=== PATIENT | female | born 1990 | race Caucasian/White ===

== ENCOUNTER 2017-05-17 12:48 | Inpatient (IN) ==
[2017-05-17] MEDS ORDERED: CHARCOAL Activated 25gm/120ml SUSP PO ONE (13:00)
--- NOTE | 2017-05-17 13:00 | Emergency Department Report ---
Overdose HPI - General Stated Complaint: possible od <Chely Urbinaawilda Griffiths - 05/17/17 13:00> Time Seen by Provider: 05/17/17 13:00 <Frannie Urbina - 05/17/17 13:00> Source: patient <Frannie Urbina Aye - 05/17/17 13:19> Mode of arrival: ambulatory <Chely Urbinaawilda Griffiths - 05/17/17 14:08> Limitations: no limitations <Frannie Urbina 05/17/17 14:08> - History of Present Illness HPI Narrative: 26-year-old female brought to ED via EMS for intentional overdose. Patient states that she took 80, 100 mg Seroquel and 25, 5mg prazosin at 12:15 today. Patient was released today from [facility] for abuse of "Hung". Patient states that she did want to kill herself. Patient has had other suicidal attempts and ideation in the past. Patient is very drowsy on arrival to ED and has to be awakened to answer questions. <Frannie Urbina - 05/17/17 14:36> MD complaint: intentional overdose <Chely Urbinaawilda Griffiths - 05/17/17 14:08> Onset (ago): minute(s) (45) <Chely Urbinaawilda Griffiths - 05/17/17 14:08> - Related Data Home Medications Medication Instructions Recorded Confirmed Canagliflozin/Metformin HCl 1 each PO DAILY 05/17/17 05/17/17 [Invokamet Xr 150-500 mg Tablet] Metoprolol Tartrate [Lopressor] 25 mg PO BIDWM 05/17/17 05/17/17 Mirtazapine [Remeron] 30 mg PO HS 05/17/17 05/17/17 Prazosin [Minipress] 5 mg PO HS 05/17/17 05/17/17 Quetiapine [Seroquel] 500 mg PO HS 05/17/17 05/17/17 Sucralfate [Carafate] 1 gm PO BID 05/17/17 05/17/17 Venlafaxine HCl [Venlafaxine HCl 150 mg PO DAILY 05/17/17 05/17/17 ER] <Frannie Urbina - 05/17/17 13:00> Allergies Allergy/AdvReac Type Severity Reaction Status Date / Time No Known Drug Allergies Allergy Unknown Verified 05/17/17 13:02 <Frannie Urbina 05/17/17 13:00> Review of Systems All systems: reviewed and negative except as stated <Frannie Urbina 14:08> Psychiatric: Reports: as per HPI, depression, suicidal thoughts <Frannie Urbina 05/17/17 14:08> Physical Exam - General General appearance: other (drowsy but awakens to questions) <Frannie Urbina 05/17/17 13:22> - Normal Exams: Head:: Normocephalic without trauma <Frannie Urbina 05/17/17 13:22> Eyes:: Pupils are PERRLA w/ EOMI, No scleral icterus, irritation <Frannie Urbina 05/17/17 13:22> ENMT:: No facial trauma, nasal exudates, pharyngeal erythema, or exudates are noted <Frannie Urbina 05/17/17 13:22> Neck:: Full range of motion, without adenopathy <Frannie Urbina 05/17/17 13:22> Chest/Respirations:: Clear all rock, with good airflow, and symmetry bilaterally <Frannie Urbina 05/17/17 13:22> Abdomen:: Bowel sounds positive, soft, non-tender <Frannie Urbina 13:22> - Neck Neck exam: Present: trachea midline <Frannie Urbina 05/17/17 13:22> - Cardiovascular Cardiovascular exam: Present: normal rhythm (154) <Frannie Urbina 13:22> - Skin Skin exam: Present: warm, dry, intact <Frannie Urbina 05/17/17 19:49> - Neurological Exam Neurological exam: Present: other (awakens to voice and is orient to person, place and time on arrival to ED) <Frannie Urbina 05/17/17 19:49> - Expanded Neurological Exam Motor strength - LUE: 5/5 <Frannie Urbina 05/17/17 19:49> Motor strength - RUE: 5/5 <Frannie Urbina 05/17/17 19:49> Course Vital Signs Temperature 98.1 F 05/17/17 12:51 Pulse Rate 163 H 05/17/17 12:51 Respiratory Rate 14 05/17/17 12:51 Blood Pressure 119/58 05/17/17 12:51 Pulse Oximetry 95 05/17/17 12:51 Temperature 98.1 F 05/17/17 12:51 Pulse Rate 94 05/17/17 18:48 Respiratory Rate 15 05/17/17 18:48 Blood Pressure 103/62 05/17/17 15:20 Pulse Oximetry 100 05/17/17 18:48 <Frannie Urbina - 05/17/17 13:19> Procedures - Intubation Time out performed: Yes <Santiago Tomas 05/17/17 15:08> sedative: Versed <Santiago Tomas 05/17/17 15:08> Mg Given: 18 <Santiago Tomas 05/17/17 15:08> paralytic: Succinylcholine <Santiago Tomas 05/17/17 15:08> Mg Given: 135 <Santiago Tomas 05/17/17 15:08> Laryngoscope: Urb[place] <Santiago Tomas 05/17/17 15:08> ET Tube Size: 7.5 <Santiago Tomas 05/17/17 15:08> ET Tube Uncuffed: No <Santiago Tomas 05/17/17 15:08> Tube Secured Depth (cm): 22 <Santiago Tomas 05/17/17 15:08> Tube Secured Location: teeth <Santiago Tomas 05/17/17 15:08> Tube Placement Confirmation: visualized tube passing through cords <Santiago Tomas 05/17/17 15:08> Patient Tolerated Procedure: no complications <Santiago Tomas 05/17/17 15:08 > Intubation Complications: none <Santiago Tomas 05/17/17 15:08> Additional Comments: Respiratory therapy perform the procedure, I supervised. Patient was premedicated with lidocaine. <Santiago Tomas 05/17/17 15:08> Overdose - MDM Narrative Medical decision making narrative: Patient becoming more drowsy, with shallow respirations at 10/m and tachycardic with heart rate in the 150s. I discussed patient's HPI, vital signs, exam findings with Dr. Tomas. I feel patient is going to need to be intubated to protect airway. Dr. Tomas assumed patient care at this time. <Frannie Urbina - 05/17/17 19:49> - Differential Diagnosis Likely: suicide attempt by multiple drug overdose, drug overdose, accidental drug ingestion <Frannie Urbina - 05/17/17 19:45> - Lab Data Attestation: I reviewed the patient's lab results. <Frannie Urbina - 19:45> Result diagrams: 05/17/17 13:16 05/17/17 13:16 <Frannie Urbina - 05/17/17 13:00> Lab Results 05/17/17 05/17/17 05/17/17 Range/Units 13:16 13:16 13:16 WBC 7.0 (4.5-11.0) T/MM3 RBC 4.92 (4.00-5.20) M/MM3 Hgb 14.0 (12-16) GM/DL Hct 41.9 (36-46) % MCV 85.2 (80-100) UM3 MCH 28.5 (26-34) UUG MCHC 33.4 (31-37) GM/DL RDW Std Deviation 47.0 (36.9-50.2) FL Plt Count 213 (130-400) T/MM3 MPV 10.3 (9.4-12.4) UM3 Immature Gran % (Auto) 0.4 (0.0-0.5) % Neut % (Auto) 51.8 (33-66) % Lymph % (Auto) 40.0 (23-45) % Tift % (Auto) 5.4 (0-9.0) % Eos % (Auto) 2.1 (0-4) % Baso % (Auto) 0.3 (0-2) % Neut # (Auto) 3.6 (1.8-7.7) T/MM3 Lymph # (Auto) 2.8 (1-4.8) T/MM3 Tift # (Auto) 0.4 (0-0.8) T/MM3 Eos # (Auto) 0.2 (0-0.5) T/MM3 Baso # (Auto) 0.0 (0-0.2) T/MM3 Abs Immat Gran (auto) 0.03 (0.00-0.03) T/MM3 Turbidity < 20 (0-20) Sodium 145 H (134-144) MEQ/L Potassium 4.0 (3.6-5) MEQ/L Chloride 111 H (98-107) MEQ/L Carbon Dioxide 18 L (22-30) MEQ/L Anion Gap 16 H (5-15) MEQ/L BUN 6.0 L (7-17) MG/DL Creatinine 0.7 (0.7-1.2) MG/DL GFR Calculation 101 BUN/Creatinine Ratio 9 (6-26) RATIO Glucose 157 H (65-110) MG/DL Calculated Osmolality 280 (261-280) MOSM/KG Calcium 9.4 (8.4-10.2) MG/DL Total Bilirubin 0.20 (0.20-1.30) MG/DL Icterus Index < 2 (0-7) AST 25 (14-36) U/L ALT 39 (9-52) U/L Alkaline Phosphatase 61 (38-126) U/L Total Protein 7.7 (6.3-8.2) G/DL Albumin 4.6 (3.5-5.0) G/DL Globulin 3.1 (2.4-3.6) G/DL Albumin/Globulin Ratio 1.5 (1.1-2.2) RATIO Serum , Qual Negative (Negative) Specimen Hemolysis 24 (0-25) Salicylates < 1.0 L (2-20) MG/DL Acetaminophen < 10 L (10-30) UG/ML Alcohol, Quantitative <10 (<10) MG/DL <Frannie Urbina 05/17/17 13:19> - EKG Data EKG #1 EKG attestation: Yes: I reviewed and interpreted this EKG. <Frannie Urbina 05/17/17 19:49> EKG results narrative: Sinus tachycardia <Frannie Urbina 05/17/17 19:49> Disposition Clinical Impression: Suicide attempt by multiple drug overdose Qualifiers: Encounter type: initial encounter Qualified Code(s): T50.902A - Poisoning by unspecified drugs, medicaments and biological substances, intentional self-harm , initial encounter <Frannie Urbina 05/17/17 19:49> Disposition: 02 To [facility] [place], [place] Acute Care <Frannie Urbina 05/17/17 19:45> Condition: Improved <Frannie Urbina - 05/17/17 19:45> Instructions: <Frannie Urbina - 05/17/17 13:00> Prescriptions: No Action Venlafaxine HCl [Venlafaxine HCl ER] 150 mg PO DAILY Sucralfate [Carafate] 1 gm PO BID Canagliflozin/Metformin HCl [Invokamet Xr 150-500 mg Tablet] 1 each PO DAILY Quetiapine [Seroquel] 500 mg PO HS Prazosin [Minipress] 5 mg PO HS Metoprolol Tartrate [Lopressor] 25 mg PO BIDWM Mirtazapine [Remeron] 30 mg PO HS <Frannie Urbina - 05/17/17 13:00> Referrals: Matt Al PA [Family Provider] - <Frannie Urbina - 13:00> Forms: <Frannei Urbina - 05/17/17 13:00> - Seen By: midlevel and physician <Frannie Urbina - 05/17/17 13:20>
[2017-05-17] MEDS ORDERED: NS 1,000 ML IV ONE ×2 (13:07→14:19)
[2017-05-17] MEDS: SALINE FLUSH 10ml SYRINGE IVF PRN ×2 (13:08→23:12)
[2017-05-17] MEDS ORDERED: ONDANSETRON 4 MG/2 ML INJECTION IVP ONE (13:14)
--- OUTSIDE RECORDS SUMMARY | 2017-05-17 13:45 | External Medical Summary | Clinical Summary ---
:1990 Author Organization [facility] Address [address] [address] Phone Support Name Relationship Address Phone Shweta Alejo Unavailable [address] [place] [address] Care Team Providers Name Role Phone Unavailable Primary Care Provider Unavailable Allergies No Known Allergies Current Medications Prescription Sig. Disp. Refills Start Date End Date Status mirtazapine (REMERON) Take 30 mg by Active 30 MG tablet mouth at bedtime. Reported on 04/12/2016 busPIRone (BUSPAR) 10 Take 10 mg by Active MG tablet mouth 3 (three) times daily. Reported on 04/12/2016 risperiDONE Take 1 mg by mouth Active (RISPERDAL) 1 MG 2 (two) times tablet daily. Reported on 04/12/2016 cloNIDine (CATAPRES) Take 0.2 mg by Active 0.2 MG mouth at bedtime. tabletIndications: Reported on Hypertension 04/12/2016 Indications: High Blood Pressure diphenhydrAMINE-zinc Apply to affected 28 g 0 01/19/2015 Active acetate (BANOPHEN) areas twice daily cream pantoprazole Take 20 mg by Active (PROTONIX) 20 MG mouth daily. tablet metFORMIN Take 1 tablet (500 60 tablet 0 04/16/2016 Active (GLUCOPHAGE) 500 MG mg total) by mouth tablet 2 (two) times daily with meals. lithium (ESKALITH) Take 1 capsule 90 capsule 0 04/16/2016 Active 300 MG (300 mg total) by capsuleIndications: mouth 3 (three) Bipolar Mood times daily with Disorder, Bipolar meals. disorder Indications: Manic-Depression, Bipolar disorder QUEtiapine (SEROQUEL) Take 1 tablet (400 30 tablet 0 04/16/2016 Active 400 MG mg total) by mouth tabletIndications: at bedtime. Depressive Phase Indications: Bipolar Mood Disorder Depressive Phase of Manic-Depression sertraline (ZOLOFT) Take 1 tablet (50 30 tablet 0 04/16/2016 Active 50 MG tablet mg total) by mouth daily. busPIRone (BUSPAR) 15 Take 1 tablet (15 60 tablet 0 04/16/2016 Active MG tabletIndications: mg total) by mouth Depression, adjunct 2 (two) times daily. Indications: Depression, adjunct traZODone (DESYREL) Take 1 tablet (100 30 tablet 0 04/16/2016 Active 100 MG tablet mg total) by mouth at bedtime as needed for Sleep. Active Problems Problem Noted Date Type 2 diabetes mellitus without complication, without long-term current 04/12 use of insulin Bipolar I disorder, current episode depressed ([facility]) 04/12/2016 Suicide attempt 04/12/2016 PTSD (post-traumatic stress disorder) 01/19/2015 Bipolar 1 disorder, depressed, severe ([facility]) 01/17/2015 Overweight 01/14/2015 BMI 40.0-44.9, adult ([facility]) 01/13/2015 Respiratory failure ([facility]) 01/12/2015 Intentional drug overdose ([facility]) 01/12/2015 Sinus tachycardia 01/12/2015 Resolved Problems Problem Noted Date Resolved Date Mood disorder ([facility]) 04/12/2016 04/16/2016 Suicidal ideations 01/15/2015 01/19/2015 Mood disorder ([facility]) 01/14/2015 01/19/2015 Social History Tobacco Use Types Packs/Day Years Used Date Current Every Day Smoker 1.5 Alcohol Use Drinks/Week oz/Week Comments No 0 Standard drinks or equivalent 0.0 Sex Assigned at Date Recorded Not on file Last Filed Vital Signs Vital Sign Reading Time Taken Blood Pressure 114/73 04/16/2016 5:56 PM [employer] Pulse 94 04/16/2016 5:56 PM [employer] Temperature 36.4 C (97.6 F) 04/16/2016 5:56 PM [employer] Respiratory Rate 18 04/16/2016 5:56 PM [employer] Oxygen Saturation 99% 04/16/2016 5:56 PM [employer] Inhaled Oxygen Concentration - - Weight 100.7 kg (222 lb) 04/16/2016 6:22 AM [employer] Height 167.6 cm (5' 6") 04/12/2016 4:36 AM [employer] Body Mass Index 35.83 04/16/2016 6:22 AM [employer] Plan of Treatment Health Maintenance Due Date Last Done Comments Diabetic Foot Exam 2000 Ophthalmology Exam 2000 HPV Vaccines (1 of 3 - Female 3 Dose Series) 2001 Varicella Vaccines (1 of 2 - 2 Dose Adolescent Series) 11/08/2003 DTaP,Tdap,and Td Vaccines (1 - Tdap) 2009 CERVICAL CANCER SCREENING 11/08/2011 Influenza Vaccine (#1) 2016 Results Not on filefrom Last 3 Months
--- NOTE | 2017-05-17 15:14 | XRay Report ---
Indication: ET tube placement PROCEDURE: XR chest 1V: Encounter: Initial Comparison: None Findings: The lungs are hypoinflated. Endotracheal tube is in place with the tip 2.1 cm above the nick. Hazy basilar airspace opacities. No gross pleural effusion or pneumothorax identified. Cardiomediastinal contours are normal allowing for the hypoinflated state. Impression: 1. Endotracheal tube tip projects in appropriate position. 2. Hypoinflation with hazy basilar opacities could be due to atelectasis, pneumonia or aspiration. .
[2017-05-17] MEDS: 1/2 NS 1,000 ML IV SCH ×2 (15:29→23:58)
--- NOTE | 2017-05-17 16:08 | History & Physical Report ---
History of Present Illness Date: 05/17/17 Chief complaint: intentional drug overdose, suicidial attempt HPI: Lynn Evans is a 26-year-old female patient of Dr. Matt Al who was brought to [facility] via EMS today, 05/17/17, for evaluation of intentional drug overdose. It was reported that she was released from [facility] this morning after completing treatment for drug abuse. She has a known past history of methamphetamine abuse but it is unknown what drug(s) use she was recently treated for. She also has a history of depression with previous suicidal gestures and attempts including intentional drug overdoses and cutting of her wrists and ankles. EMS reports that upon initial evaluation, she admitted to intentionally ingesting 80 tabs of Seroquel 100mg (totally 8000mg) and 25 tabs of Prazosin 5mg (125mg) today around 12:15pm with the intent to harm herself. She also admitted to immediately notifying someone of her overdose, but was unable to recall who she notified by the time EMS arrived. She was transferred to [facility] ED for further evaluation. Initially she complained of some nausea with drowsiness which progressively became more profound during her acute evaluation in the ED. Her breathing became significantly more shallow at <10 breaths per minute requiring intubation to ensure protection of her airway. Prior to her intubation, she was given charcoal, Ativan, Zofran and 2 liters of NS IVF. Labs were obtained and revealed mild hypernatremia with sodium of 145 and hyperglycemia with glucose at 157. CXR following her intubation revealed the ET tube tip was in the appropriate position as well as hypoinflated lungs with hazy basilar opacities which could be atelectasis, pneumonia or aspiration. History was limited to prior medical records, ED notes and EMS report given her extreme somnolence on initial presentation and rapid decline requiring intubation. Due to her intentional drug over dose, suicidal attempt and respiratory failure requiring intubation, Dr. Ozuna was consulted and she was accepted into inpatient status in ICU for close cardiac and respiratory monitoring, IV hydration and treatment. Her length of stay is expected to exceed more than 2 over nights. Review of Systems ROS unobtainable: due to endotracheal tube - Constitutional Comments: drowsiness - EENMT Eyes: Absent: photophobia Nose: Absent: nosebleeds - Cardiovascular Cardiovascular: Absent: syncope, edema Vascular: Absent: pedal edema - Gastrointestinal Gastrointestinal: Present: nausea. Absent: vomiting - Musculoskeletal Musculoskeletal: Absent: deformity - Integumentary/Breasts Integumentary: Absent: rash - Neurological Neurological: Present: confusion - Psychiatric Psychiatric: Present: anxiety, depression, difficulty concentrating, suicidal ideation Past Medical History Patient Stated Medical History Bipolar disorder. Depression. PTSD. Personality disorder. Substance abuse. History of suicidal attempt and gestures. Surgical History: Unable to obtain. Family History Updates: Unable to obtain. - Social History Smoking status: Unknown if ever smoked Social history: History of prior methamphetamine abuse. Discharged from [facility] 05/17/17 after completing treatment for substance abuse of unverified substance. Patient previously lived in a prison. Residence at this time is unknown. Alcohol use is unknown. PCP - Dr. Matt Al. Medications Home Medications Medication Instructions Recorded Confirmed Type Canagliflozin/Metformin HCl 1 each PO DAILY 05/17/17 05/17/17 History [Invokamet Xr 150-500 mg Tablet] Metoprolol Tartrate [Lopressor] 25 mg PO BIDWM 05/17/17 05/17/17 History Mirtazapine [Remeron] 30 mg PO HS 05/17/17 05/17/17 History Prazosin [Minipress] 5 mg PO HS 05/17/17 05/17/17 History Quetiapine [Seroquel] 500 mg PO HS 05/17/17 05/17/17 History Sucralfate [Carafate] 1 gm PO BID 05/17/17 05/17/17 History Venlafaxine HCl [Venlafaxine HCl 150 mg PO DAILY 05/17/17 05/17/17 History ER] Allergies Allergy/AdvReac Type Severity Reaction Status Date / Time No Known Drug Allergies Allergy Unknown Verified 05/17/17 13:02 Exam Vital Signs: Temperature 98.1 F 05/17/17 12:51 Pulse Rate 92 05/17/17 15:20 Respiratory Rate 17 05/17/17 15:20 Blood Pressure 103/62 05/17/17 15:20 Pulse Oximetry 98 05/17/17 15:30 Telemetry Rhythm: Sinus Tachycardia Comments: Patient is initially seen in ED, trauma room B and then seen immediately upon arrival to ICU #2. Limited history and exam given patient is currently intubated and sedated. - Constitutional Present: no acute distress, well nourished, well developed, obese, other ( intubated) - Routine HEENT Exam Head: Present: normocephalic, atraumatic Eye: Present: PERRL. Absent: conjunctival icterus Comments: unable to assess oral cavity due to intubation placement. - Routine Neck Exam Present: supple, trachea midline. Absent: JVD - Routine Chest/Breast/Axilla Exam Chest wall: Absent: pacemaker - Routine Respiratory Exam Present: patient mechanically ventilated Comments: course breath sounds bilaterally. - Routine Cardiovascular Exam Present: S1, S2, tachycardia - Routine Abdominal Exam Present: soft, non distended Comments: hypoactive bowel sounds; obese; healed surgical scars noted to umbilicus and LLQ. - Routine Exam Comments: Barrientos catheter placed. - Routine Extremities Exam Present: no edema, pulses intact - Routine Back/Spine/Pelvis Exam Comments: unable to assess due to patient being sedated and intubated. - Routine Skin Exam Present: dry, warm. Absent: jaundice Comments: afebrile; multiple healed linear scars noted to left wrist and ankles consistent with history of cutting. - Routine Neurological Exam unable to assess given patient recent clinical sedation for intubation. - Routine Psychiatric Exam Present: suicidal ideation, depressed Results - Labs CBC & Chem 7: 05/17/17 13:16 05/17/17 13:16 - Imaging and Cardiology Chest x-ray Status: image reviewed by me Additional comments: Date of Exam: 05/17/17 Type of Exam(s): XR chest 1V Reason for Exam(s): chest tube placement Findings: The lungs are hypoinflated. Endotracheal tube is in place with the tip 2.1 cm above the nick. Hazy basilar airspace opacities. No gross pleural effusion or pneumothorax identified. Cardiomediastinal contours are normal allowing for the hypoinflated state. Impression: 1. Endotracheal tube tip projects in appropriate position. 2. Hypoinflation with hazy basilar opacities could be due to atelectasis, pneumonia or aspiration. Assessment and Plan (1) Suicide attempt by multiple drug overdose Current visit: Yes Status: Acute Assessment and Plan: Assessment: Suicidal attempt with multiple drug overdose, acute. Acute respiratory failure requiring intubation. Hypernatremia, acute, present on admission. Hyperglycemia, acute, present on admission. Bipolar disorder, chronic. Depression, chronic. PTSD, chronic. Personality disorder, chronic. Substance abuse, chronic. History of suicidal attempt and gestures. Plan - 05/17/17 (Admission). Admit to inpatient status under the care of Dr. Ozuna for suicidal attempt with intentional drug overdose with multiple drugs. Patient reportedly took 80 tabs of Seroquel 100mg and 25 tabs of Prazosin 5mg prior to arrival. She was given charcoal, Ativan, Zofran and 2 liters of NS in ED prior to requiring intubation due to respiratory failure. Concern for QT prolongation in addition to sedative effects with overdose. Monitor closely on telemetry. Poison control recommended repeat EKGs x 2 hours per ED. Continue respiratory cares with intubation to protect her airway. Will continue 1/2 NS at 125cc/hr for hydration given her hypernatremia on arrival. Will recheck BMP in AM to monitor electrolytes and renal function. Continue Ativan 1mg IV Q4H PRN agitation and monitor neurologic function closely. Zofran PRN nausea/vomiting. GI protection with Protonix 40mg IV daily. SCDs for DVT prophylaxis. Home medications were unable to be verified. A message was left for Ariela at [facility] in an attempt to verify current medications. Prior medication list reveals medication for DM. Will monitor BGMs closely and treat accordingly. Suicide precautions as well as seizure precautions to maintain patient safety. Barrientos catheter placed as patient had been incontinent and to monitor I&O closely. Will check CBC, CMP, mag and TSH in AM to monitor blood counts, electrolytes and renal function. Upon discharge, patient's care will be returned to her PCP, Dr. Al. Laith Assessment as above with: Polysubstance overdose, Metabolic encephalopathy secondary to polysubstance overdose. DVT Prophylaxis: SCD's GI Prophylaxis: Protonix Resuscitation Status: Full Code - Time spent with patient Time with patient PN: 50 minutes - Physician Narrative Physician: Luther Ozuna MD Narrative: Date: 05/17/17 Time: 1824 Have independently interviewed and examined pt. Chart reviewed. Case discussed with ED physician and my PA. Care plan developed with my supervision; agree with above. Presents to ED with intentional drug overdose. Reports it was a suicide attempt. Did call someone-EMS was activated and brought patient to ED. During evaluation in ED, mental and respiratory status started to decline. Based on amount of medication patient ingested, descision to intubate for airway protection made. Currently, patient resting comfortably on vent. Unresponsive. Paralytics should be worn off by know. Lungs: clear bilaterally with upper airway noises. CV: regular AB: soft nt BS decreased EXT: no edema Plan: Inpatient admission secondary to acute overdose of medications with respiratory sedation. Most likely will need more than 2 midnights of care needed. Continue intubation and mechanical ventilation for airway control. Will have sedatives available to help patient tolerate vent. Extubate once patient able to demonstrate ability to maintain respiratory status on her own. IVF for hydration. NG for bowel decompression. SCD for DVT prevention. Monitor lab. Will need psychiatric evaluation once she is awake and alert. Hospital Course Summary Disclaimer: The visit summary below is not to be considered part of the above Progress Note. Hospital Course: Plan - 05/17/17 (Admission). Admit to inpatient status under the care of Dr. Ozuna for suicidal attempt with intentional drug overdose with multiple drugs. Patient reportedly took 80 tabs of Seroquel 100mg and 25 tabs of Prazosin 5mg prior to arrival. She was given charcoal, Ativan, Zofran and 2 liters of NS in ED prior to requiring intubation due to respiratory failure. Concern for QT prolongation in addition to sedative effects with overdose. Monitor closely on telemetry. Poison control recommended repeat EKGs x 2 hours per ED. Continue respiratory cares with intubation to protect her airway. Will continue 1/2 NS at 125cc/hr for hydration given her hypernatremia on arrival. Will recheck BMP in AM to monitor electrolytes and renal function. Continue Ativan 1mg IV Q4H PRN agitation and monitor neurologic function closely. Zofran PRN nausea/vomiting. GI protection with Protonix 40mg IV daily. SCDs for DVT prophylaxis. Home medications were unable to be verified. A message was left for Ariela at [facility] in an attempt to verify current medications. Prior medication list reveals medication for DM. Will monitor BGMs closely and treat accordingly. Suicide precautions as well as seizure precautions to maintain patient safety. Barrientos catheter placed as patient had been incontinent and to monitor I&O closely. Will check CBC, CMP, mag and TSH in AM to monitor blood counts, electrolytes and renal function. Upon discharge, patient's care will be returned to her PCP, Dr. Al.
[2017-05-17] MEDS ORDERED: ONDANSETRON 4 MG/2 ML INJECTION IVP PRN (16:10)
[2017-05-17] MEDS ORDERED: LIDOCAINE 2% (100mg/5ml) SYRINGE (PF) IVP ONE (16:23)
[2017-05-17] MEDS ORDERED: SUCCINYLCHOLINE 20mg/mL 10mL INJECTION ONE (16:23)
[2017-05-17] MEDS ORDERED: MIDAZOLAM 5mg/5ml INJECTION ONE (16:23)
[2017-05-17] MEDS: PROPOFOL 1,000 MG/100 ML VIAL IV PRN (20:20)
[2017-05-17] MEDS: PANTOPRAZOLE 40 MG INJECTION IVP SCH (23:12)
[2017-05-18] MEDS: PROPOFOL 1,000 MG/100 ML VIAL IV PRN ×3 (02:03→10:30)
[2017-05-18 02:10] VITALS: BMI 37.5
[2017-05-18] MEDS: 1/2 NS 1,000 ML IV SCH ×2 (08:08→17:26)
[2017-05-18] MEDS: PANTOPRAZOLE 40 MG INJECTION IVP SCH (08:10)
[2017-05-18] MEDS: SALINE FLUSH 10ml SYRINGE IVF PRN ×3 (08:10→12:40)
--- NOTE | 2017-05-18 11:44 | Progress Note ---
- Date 05/18/17 Subjective: F/U: Polysubstance overdose, Toxic encephalopathy, Respiratory suppression Resting on vent. Will open eyes to verbal stimuli. Moves ext spontaneously. Gets very restless/agitated - on Max dose Propofol and needing intermittent lorazepam to help decrease agitation. Vital stable. Objective Vital signs: Temperature 96.8 F 05/17/17 15:21 Pulse Rate 91 05/18/17 10:57 Respiratory Rate 14 05/18/17 10:57 Blood Pressure 110/72 05/18/17 07:15 Pulse Oximetry 97 05/18/17 10:57 Height/Weight/BMI: Height 1.68 m Weight 108.2 kg Body Mass Index 37.5 - Constitutional Present: well nourished, well developed, obese, somnolent - Routine HEENT Exam Head: Present: normocephalic, atraumatic ENT: Present: mucous membranes moist - Routine Respiratory Exam Present: CTA bilaterally. Absent: respiratory distress, wheezes, crackles - Routine Cardiovascular Exam Present: RRR, no murmur - Routine Abdominal Exam Present: soft, non distended, non tender. Absent: normoactive bowel sounds, guarding - Routine Extremities Exam Present: cyanosis, clubbing, edema (Trace BLE ), pulses intact, normal capillary refill - Routine Musculoskeletal Exam Musculoskeletal: Present: no clubbing or cyanosis - Routine Skin Exam Present: dry, warm - Routine Neurological Exam Present: moving all extremities - Routine Psychiatric Exam Absent: agitated Results - Labs CBC & Chem 7: 05/18/17 04:38 05/18/17 04:38 Assessment and Plan (1) Polysubstance overdose Current visit: Yes Status: Acute (2) Encephalopathy, toxic Current visit: Yes Status: Acute (3) Suicide attempt by multiple drug overdose Current visit: Yes Status: Acute Assessment and Plan: Assessment: Polysubstance drug overdose, intentional Toxic metabolic encephalopathy secondary to drug overdose Acute respiratory failure requiring intubation for airway protection Suicidal attempt with multiple drug overdose, acute. Hypernatremia, acute (POA) Hyperglycemia, acute (POA) Bipolar disorder, chronic Depression, chronic PTSD, chronic Personality disorder, chronic Substance abuse, chronic History of suicidal attempt and gestures Plan Respiratory status doing well, needing minimal ventilatory support. Will extubate. Need to monitor respiratory status off vent. Decrease IVF to 1/2NS at 100 cc/hr. Remove NG as patient extubated - advance diet when patient awake and alert. Will continue lorazepam to help restlessness and agitation. Psych consult when she is awake and alert. Continue CCU monitoring. Case discussed with CCU nursing and RT. Time spent with patient care 35 minutes. DVT Prophylaxis: SCD's Resuscitation Status: Full Code - Time spent with patient Time with patient PN: 35 minutes - Physician Narrative Physician: Luther Ozuna MD Narrative: Date: 05/18/17 Time: 1140 Hospital Course Summary Disclaimer: The visit summary below is not to be considered part of the above Progress Note. Hospital Course: 05/17/17 - Admission Admit to inpatient status under the care of Dr. Ozuna for suicidal attempt with intentional drug overdose with multiple drugs. Patient reportedly took 80 tabs of Seroquel 100mg and 25 tabs of Prazosin 5mg prior to arrival. She was given charcoal, Ativan, Zofran and 2 liters of NS in ED prior to requiring intubation due to respiratory failure. Concern for QT prolongation in addition to sedative effects with overdose. Monitor closely on telemetry. Poison control recommended repeat EKGs x 2 hours per ED. Continue respiratory cares with intubation to protect her airway. Will continue 1/2 NS at 125cc/hr for hydration given her hypernatremia on arrival. Will recheck BMP in AM to monitor electrolytes and renal function. Continue Ativan 1mg IV Q4H PRN agitation and monitor neurologic function closely. Zofran PRN nausea/vomiting. GI protection with Protonix 40mg IV daily. SCDs for DVT prophylaxis. Home medications were unable to be verified. A message was left for Ariela at [email or web address] in an attempt to verify current medications. Prior medication list reveals medication for DM. Will monitor BGMs closely and treat accordingly. Suicide precautions as well as seizure precautions to maintain patient safety. Barrientos catheter placed as patient had been incontinent and to monitor I&O closely. Will check CBC, CMP, mag and TSH in AM to monitor blood counts, electrolytes and renal function. Upon discharge, patient's care will be returned to her PCP, Dr. Al. 05/18/17 Respiratory status doing well, needing minimal ventilatory support. Will extubate. Need to monitor respiratory status off vent. Decrease IVF to 1/2NS at 100 cc/hr. Remove NG as patient extubated - advance diet when patient awake and alert. Will continue lorazepam to help restlessness and agitation. Psych consult when she is awake and alert. Continue CCU monitoring.
--- NOTE | 2017-05-18 14:00 | Pulmonology Consult Note ---
History of Present Illness Consult date: 05/18/17 Requesting physician: Luther Ozuna Reason for consult: other (vent management) History of present illness: Patient is extubated and doing well. Will likely stay in ICU until psych disposition is determined. I will see as needed. PFSH Patient Stated Medical History Diabetes Mellitus Type 2 Yes Bipolar Disorder Yes Depression Yes Post Traumatic Stress Disorder Yes Substance Use Disorder Yes Other Behavioral Health Yes: personality disorder Surgical History: Unable to obtain. - Social History Smoking status: Unknown if ever smoked Medications Home Medications Medication Instructions Recorded Confirmed Type Canagliflozin/Metformin HCl 1 each PO DAILY 05/17/17 05/17/17 History [Invokamet Xr 150-500 mg Tablet] Metoprolol Tartrate [Lopressor] 25 mg PO BIDWM 05/17/17 05/17/17 History Mirtazapine [Remeron] 30 mg PO HS 05/17/17 05/17/17 History Prazosin [Minipress] 5 mg PO HS 05/17/17 05/17/17 History Quetiapine [Seroquel] 500 mg PO HS 05/17/17 05/17/17 History Sucralfate [Carafate] 1 gm PO BID 05/17/17 05/17/17 History Venlafaxine HCl [Venlafaxine HCl 150 mg PO DAILY 05/17/17 05/17/17 History ER] Allergies Allergy/AdvReac Type Severity Reaction Status Date / Time No Known Drug Allergies Allergy Unknown Verified 05/17/17 13:02 Exam Vital signs: Temperature 98.2 F 05/18/17 12:15 Pulse Rate 102 H 05/18/17 13:00 Respiratory Rate 21 05/18/17 13:00 Blood Pressure 125/81 05/18/17 13:00 Pulse Oximetry 98 05/18/17 13:00 Results - Laboratory Findings CBC and BMP: 05/18/17 04:38 05/18/17 04:38 Abnormal lab findings: Abnormal Labs 05/17/17 05/18/17 05/18/17 17:25 04:38 04:38 WBC 11.2 H D Abs Immat Gran (auto) 0.04 H Sodium 146 H Chloride 114 H Carbon Dioxide 20 L Total Bilirubin < 0.10 L TSH 7.22 H Urine Glucose (UA) 3+ A Assessment and Plan - Time Spent With Patient Total time spent is greater than 50% in coordination of care (as documented) at patient's floor/unit and/or counseling patient: less than 15 minutes
[2017-05-18] MEDS: NICOTINE 21 MG PATCH TD SCH (15:35)
[2017-05-18 18:06] VITALS: TEMP 98.6
[2017-05-18] MEDS: MIRTAZAPINE 30 MG TABLET PO SCH (22:18)
[2017-05-18] MEDS: PRAZOSIN 5 MG CAPSULE PO SCH (22:19)
[2017-05-19] MEDS: 1/2 NS 1,000 ML IV SCH ×2 (03:16→09:17)
[2017-05-19] MEDS ORDERED: METFORMIN 500 MG TABLET PO SCH (07:30)
[2017-05-19] MEDS ORDERED: CANAGLIFLOZIN 100mg TABLET PO SCH (07:30)
[2017-05-19] MEDS ORDERED: [UNRECOGNIZED DRUG - OTHER] PO SCH (09:00)
[2017-05-19] MEDS ORDERED: CANAGLIFLOZIN PO SCH (09:00)
[2017-05-19] MEDS ORDERED: METFORMIN HCL PO SCH (09:00)
[2017-05-19] MEDS ORDERED: SUCRALFATE 1 GM TABLET PO SCH (09:00)
[2017-05-19] MEDS: NICOTINE 21 MG PATCH TD SCH (09:15)
[2017-05-19] MEDS: PANTOPRAZOLE 40 MG INJECTION IVP SCH (09:17)
[2017-05-19] MEDS: NICOTINE PATCH REMOVAL TD SCH (09:44)
--- NOTE | 2017-05-19 10:10 | XRay Report ---
Indication: ET tube follow up PROCEDURE: XR chest 1V: Encounter: Initial Comparison: May 17, 2017 Findings: New nasogastric tube in place with the proximal side port projecting over the body of the stomach. Endotracheal tube is in place with the tip projecting 4.3 cm above the nick near the thoracic inlet. Lungs show hazy alveolar type opacity in the right medial base. No pneumothorax or definite effusion. Heart size and mediastinal contours are stable. Impression: Tubes and lines as above. Hazy right basilar infiltrate. .
[2017-05-19] MEDS: SUCRALFATE 1 GM TABLET PO SCH (10:25)
[2017-05-19] MEDS ORDERED: LORazepam 1 MG TABLET PO PRN ×2 (12:41→19:46)
--- NOTE | 2017-05-19 14:02 | Progress Note ---
- Date 05/19/17 Subjective: F/U: Polysubstance overdose, Toxic encephalopathy, Respiratory suppression Sitting up in bed. Nursing reports significant behavior problems today: very agitated, broke a senior research consultant she had and cutting arm with senior research consultant and swallowed a piece of senior research consultant. Hard to redirect-did need to contact [place] [employer]. Currently in restrains secondary to her behavioral problems. Poor eye contact. Not very forthcoming with questioning. Breathing okay, notes slight SOA with activities. Not having increased cough/congestion. No pain with breathing. No chest pressure , pain, or heaviness. Does report fast heart rate in the past. Appetite decreased-not wanting the food here. Objective Vital signs: Temperature 98.6 F 05/18/17 18:00 Pulse Rate 116 H 05/19/17 11:55 Respiratory Rate 18 05/19/17 09:45 Blood Pressure 118/84 05/19/17 09:00 Pulse Oximetry 97 05/19/17 09:45 Height/Weight/BMI: Height 1.68 m Weight 106 kg Body Mass Index 37.5 - Constitutional Present: well nourished, well developed, obese. Absent: cooperative, somnolent , obtunded - Routine HEENT Exam Head: Present: normocephalic, atraumatic Eye: Present: EOMI, PERRL ENT: Present: mucous membranes moist - Routine Respiratory Exam Present: CTA bilaterally. Absent: rales, respiratory distress, rhonchi, stridor , wheezes, crackles - Routine Cardiovascular Exam Present: no murmur, tachycardia - Routine Abdominal Exam Present: soft, normoactive bowel sounds, non distended, non tender. Absent: guarding - Routine Extremities Exam Present: no edema, pulses intact. Absent: cyanosis, clubbing - Routine Musculoskeletal Exam Musculoskeletal: Present: no clubbing or cyanosis, normal strength - Routine Neurological Exam Present: alert, CN II-XII intact, moving all extremities, vision grossly intact , hearing grossly intact, normal speech. Absent: motor deficit, altered mental status - Routine Psychiatric Exam Absent: anxious, agitated Comments: Poor eye contact. Answers questions with short phrases. Results - Labs CBC & Chem 7: 05/19/17 04:39 05/19/17 04:39 Assessment and Plan (1) Polysubstance overdose Current visit: Yes Status: Acute (2) Encephalopathy, toxic Current visit: Yes Status: Acute (3) Suicide attempt by multiple drug overdose Current visit: Yes Status: Acute Assessment and Plan: Assessment Polysubstance drug overdose, intentional Toxic metabolic encephalopathy secondary to drug overdose - resolved Acute respiratory failure requiring intubation for airway protection - resolved Suicidal attempt with multiple drug overdose, acute. Hypernatremia, acute (POA) Hyperglycemia, acute (POA) Hypokalemia (Not POA) Type II DM Bipolar disorder, chronic Depression, chronic PTSD, chronic Personality disorder, chronic Substance abuse, chronic History of suicidal attempt and gestures Obesity with BMI 37.7 Plan Respiratory status doing well on RA. Maintaining saturation IV site lost as patient pulled out IV and tele. Significant behavioral problems expressed. Refusing oral medications. Refused oral potassium. Will have lorazepam 1mg IM q2 hr prn, possible need to increase dose base on response. Restrains initiated for patient as staff safety. Will try to obtain abdominal xray secondary to patient's ingestion of foreign object. PV did state screen on patient - recommend involuntary admission to [facility]. Arrangements being made. Needs to continue CCU monitoring for 1 on 1 supervision for patient safety. Case discussed with CCU nursing and pharm. Time spent with patient care 25 minutes. Case discussed with provider at [facility]. Will accept patient tomorrow. Resuscitation Status: Full Code - Time spent with patient Time with patient PN: 25 minutes - Physician Narrative Physician: Luther Ozuna MD Narrative: Date: 05/19/17 Time: 8191 Hospital Course Summary Disclaimer: The visit summary below is not to be considered part of the above Progress Note. Hospital Course: 05/17/17 - Admission Admit to inpatient status under the care of Dr. Ozuna for suicidal attempt with intentional drug overdose with multiple drugs. Patient reportedly took 80 tabs of Seroquel 100mg and 25 tabs of Prazosin 5mg prior to arrival. She was given charcoal, Ativan, Zofran and 2 liters of NS in ED prior to requiring intubation due to respiratory failure. Concern for QT prolongation in addition to sedative effects with overdose. Monitor closely on telemetry. Poison control recommended repeat EKGs x 2 hours per ED. Continue respiratory cares with intubation to protect her airway. Will continue 1/2 NS at 125cc/hr for hydration given her hypernatremia on arrival. Will recheck BMP in AM to monitor electrolytes and renal function. Continue Ativan 1mg IV Q4H PRN agitation and monitor neurologic function closely. Zofran PRN nausea/vomiting. GI protection with Protonix 40mg IV daily. SCDs for DVT prophylaxis. Home medications were unable to be verified. A message was left for Ariela at [facility] in an attempt to verify current medications. Prior medication list reveals medication for DM. Will monitor BGMs closely and treat accordingly. Suicide precautions as well as seizure precautions to maintain patient safety. Barrientos catheter placed as patient had been incontinent and to monitor I&O closely. Will check CBC, CMP, mag and TSH in AM to monitor blood counts, electrolytes and renal function. Upon discharge, patient's care will be returned to her PCP, Dr. Al. 05/18/17 Respiratory status doing well, needing minimal ventilatory support. Will extubate. Need to monitor respiratory status off vent. Decrease IVF to 1/2NS at 100 cc/hr. Remove NG as patient extubated - advance diet when patient awake and alert. Will continue lorazepam to help restlessness and agitation. Psych consult when she is awake and alert. Continue CCU monitoring for close one-on-one supervision secondary to suicide attempt. 05/19/17 Respiratory status doing well on RA. Maintaining saturation IV site lost as patient pulled out IV and tele. Significant behavioral problems expressed. Refusing oral medications. Refused oral potassium. Will have lorazepam 1mg IM q2 hr prn, possible need to increase dose base on response. Restrains initiated for patient as staff safety. Will try to obtain abdominal xray secondary to patient's ingestion of foreign object. PV did state screen on patient - recommend involuntary admission to [facility]. Arrangements being made. Needs to continue CCU monitoring for 1 on 1 supervision for patient safety.
[2017-05-19] MEDS ORDERED: ACETAMINOPHEN 500 MG TABLET PO PRN (15:42)
[2017-05-19] MEDS ORDERED: ONDANSETRON 4 MG TABLET PO PRN (17:11)
[2017-05-19] MEDS ORDERED: MAG-AL + SIM ORAL LIQUID 30ml PO PRN (17:12)
[2017-05-19] MEDS: PRAZOSIN 5 MG CAPSULE PO SCH (19:36)
[2017-05-19] MEDS: MIRTAZAPINE 30 MG TABLET PO SCH (19:38)
[2017-05-19] MEDS: QUETIAPINE 100 MG TABLET PO SCH (19:38)
[2017-05-19 23:50] VITALS: RESP 43
[2017-05-20] MEDS: QUETIAPINE 100 MG TABLET PO SCH (01:06)
[2017-05-20] MEDS: MIRTAZAPINE 30 MG TABLET PO SCH (01:06)
[2017-05-20] MEDS: SUCRALFATE 1 GM TABLET PO SCH (01:06)
[2017-05-20] MEDS: PRAZOSIN 5 MG CAPSULE PO SCH (01:06)
--- NOTE | 2017-05-20 09:14 | Progress Note ---
- Date 05/20/17 Subjective: F/U: Polysubstance overdose, Toxic encephalopathy, Respiratory suppression Sleepy this morning. Slept well during night. Nursing decreased restraint to 1 ext--pt could not guarantee she would be able to control behaviors. Breathing well-maintaining saturations without difficulty. No respiratory distress. Appetite decreased-not had breakfast this morning (sleeping), but not hungry. No nausea or ab pain. Objective Vital signs: Temperature 98.6 F 05/18/17 18:00 Pulse Rate 131 H 05/19/17 16:30 Respiratory Rate 43 H 05/19/17 16:30 Blood Pressure 119/69 05/20/17 06:00 Pulse Oximetry 95 05/19/17 11:00 Height/Weight/BMI: Height 1.68 m Weight 106 kg Body Mass Index 37.5 - Constitutional Present: well nourished, well developed, average body habitus, obese - Routine HEENT Exam Head: Present: normocephalic, atraumatic Eye: Present: EOMI, PERRL ENT: Present: mucous membranes moist - Routine Respiratory Exam Present: CTA bilaterally. Absent: rales, respiratory distress, rhonchi, stridor , wheezes, crackles - Routine Cardiovascular Exam Present: RRR, no murmur - Routine Abdominal Exam Present: soft, non distended, non tender. Absent: guarding - Routine Extremities Exam Present: no edema, pulses intact. Absent: cyanosis, clubbing - Routine Musculoskeletal Exam Musculoskeletal: Present: no clubbing or cyanosis - Routine Skin Exam Present: dry, warm - Routine Neurological Exam Present: alert, CN II-XII intact, moving all extremities, vision grossly intact , hearing grossly intact, normal speech. Absent: motor deficit, altered mental status - Routine Psychiatric Exam Absent: normal affect (Flat ), paranoid, manic Results - Labs CBC & Chem 7: 05/19/17 04:39 05/19/17 04:39 Assessment and Plan (1) Polysubstance overdose Current visit: Yes Status: Acute (2) Encephalopathy, toxic Current visit: Yes Status: Acute (3) Suicide attempt by multiple drug overdose Current visit: Yes Status: Acute Assessment and Plan: Assessment Polysubstance drug overdose, intentional Toxic metabolic encephalopathy secondary to drug overdose - resolved Acute respiratory failure requiring intubation for airway protection - resolved Suicidal attempt with multiple drug overdose, acute. Hypernatremia, acute (POA) Hyperglycemia, acute (POA) Hypokalemia (Not POA) Type II DM Bipolar disorder, chronic Depression, chronic PTSD, chronic Personality disorder, chronic Substance abuse, chronic History of suicidal attempt and gestures Obesity with BMI 37.7 Plan Medically doing well. Respiratory status stable. Will arrange discharge to [facility] for definitive psychiatric treatment. Patient' s psychiatric status required inpatient treatment. Medically stable for discharge. See orders for details. Case discussed with CCU nursing. Time spent with patient care and discharge greater than 30 minutes. - Physician Narrative Narrative: Date: 05/20/17 Time: 09 Hospital Course Summary Disclaimer: The visit summary below is not to be considered part of the above Progress Note. Hospital Course: 05/17/17 - Admission Admit to inpatient status under the care of Dr. Ozuna for suicidal attempt with intentional drug overdose with multiple drugs. Patient reportedly took 80 tabs of Seroquel 100mg and 25 tabs of Prazosin 5mg prior to arrival. She was given charcoal, Ativan, Zofran and 2 liters of NS in ED prior to requiring intubation due to respiratory failure. Concern for QT prolongation in addition to sedative effects with overdose. Monitor closely on telemetry. Poison control recommended repeat EKGs x 2 hours per ED. Continue respiratory cares with intubation to protect her airway. Will continue 1/2 NS at 125cc/hr for hydration given her hypernatremia on arrival. Will recheck BMP in AM to monitor electrolytes and renal function. Continue Ativan 1mg IV Q4H PRN agitation and monitor neurologic function closely. Zofran PRN nausea/vomiting. GI protection with Protonix 40mg IV daily. SCDs for DVT prophylaxis. Home medications were unable to be verified. A message was left for Ariela at [facility] in an attempt to verify current medications. Prior medication list reveals medication for DM. Will monitor BGMs closely and treat accordingly. Suicide precautions as well as seizure precautions to maintain patient safety. Barrientos catheter placed as patient had been incontinent and to monitor I&O closely. Will check CBC, CMP, mag and TSH in AM to monitor blood counts, electrolytes and renal function. Upon discharge, patient's care will be returned to her PCP, Dr. Al. 05/18/17 Respiratory status doing well, needing minimal ventilatory support. Will extubate. Need to monitor respiratory status off vent. Decrease IVF to 1/2NS at 100 cc/hr. Remove NG as patient extubated - advance diet when patient awake and alert. Will continue lorazepam to help restlessness and agitation. Psych consult when she is awake and alert. Continue CCU monitoring for close one-on-one supervision secondary to suicide attempt. 05/19/17 Respiratory status doing well on RA. Maintaining saturation IV site lost as patient pulled out IV and tele. Significant behavioral problems expressed. Refusing oral medications. Refused oral potassium. Will have lorazepam 1mg IM q2 hr prn, possible need to increase dose base on response. Restrains initiated for patient as staff safety. Will try to obtain abdominal xray secondary to patient's ingestion of foreign object. PV did state screen on patient - recommend involuntary admission to [place]. Arrangements being made. Needs to continue CCU monitoring for 1 on 1 supervision for patient safety. Case discussed with provider at [facility] - will accept patient tomorrow for inpatient psychiatric treatment. 05/20/17 Medically doing well. Respiratory status stable. Will arrange discharge to [place] for definitive psychiatric treatment. Patient' s psychiatric status required inpatient treatment. Medically stable for discharge. See orders for details.
--- NOTE | 2017-05-20 09:29 | Discharge Summary ---
Discharge Information Date of admission: 05/17/17 15:12 Anticipated date of discharge: 05/20/17 Attending Physician: Luther Ozuna MD Primary care physician: LORNA Berry Consults: Dr Valentine - Pulmonology - for Vent Management. [place] for State Screen - Discharge Diagnosis (1) Polysubstance overdose Status: Acute (2) Encephalopathy, toxic Status: Acute (3) Suicide attempt by multiple drug overdose Status: Acute Discharge diagnosis Polysubstance drug overdose, intentional Associated conditions and complications Toxic metabolic encephalopathy secondary to drug overdose - resolved Acute respiratory failure requiring intubation for airway protection - resolved Suicidal attempt with multiple drug overdose, acute. Hypernatremia, acute (POA) Hyperglycemia, acute (POA) Hypokalemia (Not POA) Type II DM Bipolar disorder, chronic Depression, chronic PTSD, chronic Personality disorder, chronic Substance abuse, chronic History of suicidal attempt and gestures Obesity with BMI 37.7 - Procedures Procedures: Intubation and mechanical ventilation for less than 24 hours - Laboratory Labs: Admit Lab 05/17/17 13:16 WBC 7.0 Hgb 14.0 Hct 41.9 Plt Count 213 Neut % (Auto) 51.8 Lymph % (Auto) 40.0 [place] % (Auto) 5.4 Eos % (Auto) 2.1 Baso % (Auto) 0.3 Admit Lab 05/17/17 05/17/17 13:16 13:16 Sodium 145 H Potassium 4.0 Chloride 111 H Carbon Dioxide 18 L Anion Gap 16 H BUN 6.0 L Creatinine 0.7 GFR Calculation 101 Glucose 157 H Calculated Osmolality 280 Calcium 9.4 Total Bilirubin 0.20 AST 25 ALT 39 Alkaline Phosphatase 61 Total Protein 7.7 Albumin 4.6 Globulin 3.1 Albumin/Globulin Ratio 1.5 Serum , Qual Negative TSH 05/18/17 04:38 TSH 7.22 H Drug Screen Tests 05/17/17 05/17/17 13:16 17:25 Salicylates < 1.0 L Acetaminophen < 10 L U Tricyclic Antidepress Positive Alcohol, Quantitative <10 05/19/17 04:39 05/19/17 04:39 - Radiology Radiology: Date of Exam: 05/17/17 PROCEDURE: XR chest 1V Findings: The lungs are hypoinflated. Endotracheal tube is in place with the tip 2.1 cm above the nick. Hazy basilar airspace opacities. No gross pleural effusion or pneumothorax identified. Cardiomediastinal contours are normal allowing for the hypoinflated state. Impression: 1. Endotracheal tube tip projects in appropriate position. 2. Hypoinflation with hazy basilar opacities could be due to atelectasis, pneumonia or aspiration. Date of Exam: 05/18/17 PROCEDURE: XR chest 1V Findings: New nasogastric tube in place with the proximal side port projecting over the body of the stomach. Endotracheal tube is in place with the tip projecting 4.3 cm above the nick near the thoracic inlet. Lungs show hazy alveolar type opacity in the right medial base. No pneumothorax or definite effusion. Heart size and mediastinal contours are stable. Impression: Tubes and lines as above. Hazy right basilar infiltrate. History of Present Illness HPI: Lynn Evans is a 26-year-old female patient of Dr. Matt Al who was brought to [facility] via EMS today, 05/17/17, for evaluation of intentional drug overdose. It was reported that she was released from [facility] this morning after completing treatment for drug abuse. She has a known past history of methamphetamine abuse but it is unknown what drug(s) use she was recently treated for. She also has a history of depression with previous suicidal gestures and attempts including intentional drug overdoses and cutting of her wrists and ankles. EMS reports that upon initial evaluation, she admitted to intentionally ingesting 80 tabs of Seroquel 100mg (totally 8000mg) and 25 tabs of Prazosin 5mg (125mg) today around 12:15pm with the intent to harm herself. She also admitted to immediately notifying someone of her overdose, but was unable to recall who she notified by the time EMS arrived. She was transferred to [facility] for further evaluation. Initially she complained of some nausea with drowsiness which progressively became more profound during her acute evaluation in the ED. Her breathing became significantly more shallow at <10 breaths per minute requiring intubation to ensure protection of her airway. Prior to her intubation, she was given charcoal, Ativan, Zofran and 2 liters of NS IVF. Labs were obtained and revealed mild hypernatremia with sodium of 145 and hyperglycemia with glucose at 157. CXR following her intubation revealed the ET tube tip was in the appropriate position as well as hypoinflated lungs with hazy basilar opacities which could be atelectasis, pneumonia or aspiration. History was limited to prior medical records, ED notes and EMS report given her extreme somnolence on initial presentation and rapid decline requiring intubation. Due to her intentional drug over dose, suicidal attempt and respiratory failure requiring intubation, Dr. Ozuna was consulted and she was accepted into inpatient status in ICU for close cardiac and respiratory monitoring, IV hydration and treatment. Her length of stay is expected to exceed more than 2 over nights. For complete details of the H&P refer to that document. Objective Vital signs: Temperature 98.6 F 05/18/17 18:00 Pulse Rate 131 H 05/19/17 16:30 Respiratory Rate 43 H 05/19/17 16:30 Blood Pressure 119/69 05/20/17 06:00 Pulse Oximetry 95 05/19/17 11:00 Height/Weight/BMI: Height 1.68 m Weight 106 kg Body Mass Index 37.5 Hospital Course This is a general summary of the patient's hospital course. For more details refer to the complete medical record. Hospital course: 05/17/17 - Admission Admit to inpatient status under the care of Dr. Ozuna for suicidal attempt with intentional drug overdose with multiple drugs. Patient reportedly took 80 tabs of Seroquel 100mg and 25 tabs of Prazosin 5mg prior to arrival. She was given charcoal, Ativan, Zofran and 2 liters of NS in ED prior to requiring intubation due to respiratory failure. Concern for QT prolongation in addition to sedative effects with overdose. Monitor closely on telemetry. Poison control recommended repeat EKGs x 2 hours per ED. Continue respiratory cares with intubation to protect her airway. Will continue 1/2 NS at 125cc/hr for hydration given her hypernatremia on arrival. Will recheck BMP in AM to monitor electrolytes and renal function. Continue Ativan 1mg IV Q4H PRN agitation and monitor neurologic function closely. Zofran PRN nausea/vomiting. GI protection with Protonix 40mg IV daily. SCDs for DVT prophylaxis. Home medications were unable to be verified. A message was left for Ariela at [facility] in an attempt to verify current medications. Prior medication list reveals medication for DM. Will monitor BGMs closely and treat accordingly. Suicide precautions as well as seizure precautions to maintain patient safety. Barrientos catheter placed as patient had been incontinent and to monitor I&O closely. Will check CBC, CMP, mag and TSH in AM to monitor blood counts, electrolytes and renal function. Upon discharge, patient's care will be returned to her PCP, Dr. Al. 05/18/17 Respiratory status doing well, needing minimal ventilatory support. Will extubate. Need to monitor respiratory status off vent. Decrease IVF to 1/2NS at 100 cc/hr. Remove NG as patient extubated - advance diet when patient awake and alert. Will continue lorazepam to help restlessness and agitation. Psych consult when she is awake and alert. Continue CCU monitoring for close one-on-one supervision secondary to suicide attempt. 05/19/17 Respiratory status doing well on RA. Maintaining saturations. IV site lost as patient pulled out IV and tele. Significant behavioral problems expressed. Refusing oral medications. Refused oral potassium. Will have lorazepam 1mg IM q2 hr prn, possible need to increase dose base on response. Restrains initiated for patient as staff safety. Will try to obtain abdominal xray secondary to patient's ingestion of foreign object. PV did state screen on patient - recommend involuntary admission to [facility]. Arrangements being made. Needs to continue CCU monitoring for 1 on 1 supervision for patient safety. Case discussed with provider at [facility] - will accept patient tomorrow for inpatient psychiatric treatment. 05/20/17 Medically doing well. Respiratory status stable. Will arrange discharge to [facility] for definitive psychiatric treatment. Patient' s psychiatric status required inpatient treatment. Medically stable for discharge. See orders for details. Time spent with patient: discharge greater than 30 minutes Resuscitation Status: Full Code Discharge Plan - Discharge Disposition Discharge Date: 05/20/17 Disposition: 65 To Psych Hosp/Unit *Condition: Improved Reason For Visit (Visit label in EMR): intubation/mech ventilate due to sedation from OD - Discharge Medications *Discharge Medications: Continue Venlafaxine HCl [Venlafaxine HCl ER] 150 mg PO DAILY Sucralfate [Carafate] 1 gm PO BID Quetiapine [Seroquel] 500 mg PO HS Prazosin [Minipress] 5 mg PO HS Metoprolol Tartrate [Lopressor] 25 mg PO BIDWM Mirtazapine [Remeron] 30 mg PO HS Discontinued Canagliflozin/Metformin HCl [Invokamet Xr 150-500 mg Tablet] 1 each PO DAILY - Discharge Packet/Instructions *Diet: Regular *Activity: As tolerated *Pain Management/Treatment: Tylenol okay for pain *Wound Care: n/a *Expected Signs/Symptoms: Improvement of mental health with treatments provided at [facility] *Notify Physician if: Temp >100.4. Nausea. Constipation. *During Business Hours Contact: Nursing staff at [facility] *After Business Hours Contact: Nursing staff at [facility] - Referrals/Follow Up *Referrals/Follow Up: Matt Al PA [Family Provider] - (Follow up 1 week after discharge from [facility] ) - Patient Handouts - Dismissal Complete Discharge Instructions are:: Complete Physician Narrative - Narrative Physician: Luther Ozuna MD Attestation Narrative: Date: 05/20/17 Time: 925 I have independently interviewed and examine patient prior to discharge. See my progress note from today for details. Medically stable for discharge to inpatient psychiatric care.
[2017-05-20] MEDS: NICOTINE 21 MG PATCH TD SCH (09:33)
[2017-05-20] MEDS: NICOTINE PATCH REMOVAL TD SCH (09:35)
[2017-05-20 10:50] VITALS: BP 121/75; PULSE 110; O2SAT 96
== END 2017-05-20 10:50 | DRG 917 ==
LOC: ED 12:48 → CCU 15:12
PROVIDERS: ADMIT Hospitalist; ATTEND Hospitalist